=== PATIENT | male | born 1960 | race Caucasian/White ===

== ENCOUNTER 2021-02-23 14:20 | Emergency (ER) | payer MEDICARE ==
[~2021-02-23] VITALS: Ht 177.8 cm; Wt 99.8 kg
[2021-02-23 14:55] LABS: HEMATOCRIT 56.2 % (42.0-52.0); MCH 28.9 pg (26.0-34.0); MCHC 24.9 g/dL (28.0-37.0); MPV 12.3 fl. (7.2-11.1); NUCLEATED RBCS 0 /100WBC; PLATELET COUNT* 347 thou/uL (150-400); RBC 4.85 mil/uL (4.50-6.00); RDW-CV 15.4 % (10.5-14.5)
[2021-02-23 15:06] LABS: CALCIUM 9.4 mg/dL (8.5-10.1); CREATININE 4.3 mg/dL (0.6-1.3); POTASSIUM 3.9 mmol/L (3.5-5.1)
[2021-02-23 15:12] LABS: APTT 44.1 Seconds (25.0-31.3); INR 1.2; PROTIME 12.2 Seconds (9.20-11.50)
[2021-02-23 15:17] LABS: ALBUMIN 2.9 g/dL (3.4-5.0); CK-MB MASS 1.2 ng/mL (<0.5-3.6); MAGNESIUM 4.7 mg/dL (1.8-2.4); TOTAL BILIRUBIN 0.3 mg/dL (<0.1-1.0); TOTAL PROTEIN 6.8 g/dL (6.4-8.2)
[2021-02-23 16:52] LABS: ABSOLUTE LYMPHOCYTES 2.2 thou/uL (0.8-5.3); ABSOLUTE MONOCYTES 0.4 thou/uL (0.0-1.2); ABSOLUTE NEUTROPHILS 7.4 thou/uL (1.6-8.1)
[2021-02-23 16:53] LABS: PLATELET ESTIMATE INCREASED
[2021-02-23 16:54] LABS: GIANT PLATELETS OCCASIONAL; LARGE PLATELETS MODERATE
[2021-02-23 16:57] LABS: MACROCYTES 1+
[2021-02-23 17:45] VITALS: BP 0/0
== END 2021-02-23 17:47 ==
LOC: M.ERS 14:20
PROVIDERS: Family Medicine
DX: I46.9 Cardiac arrest, cause unspecified (principal); I10 Essential (primary) hypertension